=== PATIENT | male | born 1975 | race Two or more races ===

== ENCOUNTER 2019-09-10 13:43 | Emergency (ER) | payer BC ==
[~2019-09-10] VITALS: Ht 180.3 cm; Wt 91.1 kg
--- NOTE | 2019-09-10 15:03 | NUR ---
COMMUNICATIONS INTERN: PT AMBULATORY WITH STEADY GAIT TO ROOM AT THIS TIME.
--- NOTE | 2019-09-10 15:15 | NUR ---
ASSUMED CARE OF PT AT THIS TIME.
[2019-09-10 15:44] VITALS: BP 142/94
== END 2019-09-10 16:02 | disposition home or self-care (01) ==
LOC: ED 15:50
DX: K64.8 Other hemorrhoids (principal)
CPT/HCPCS: 99284